=== PATIENT | female | born 1965 | race Caucasian/White ===

== ENCOUNTER 2024-01-23 06:30 | Outpatient (CLI) | payer BC, SELFPAY ==
[2024-01-23 18:55] LABS: Basophils Percent Auto 0.5 % (0.2-1.2); Eosinophils Absolute Auto 0.1 K/mm3 (0-0.3); Eosinophils Percent Auto 2.6 % (0-4.4); Hematocrit 44.9 % (37.0-47.0); Hemoglobin 14.4 g/dL (12.0-15.0); Immature Granulocyte Absolute 0.02 K/mm3 (0.00-0.031); Immature Granulocyte Percent A 0.5 % (0-0.5); Lymphocytes Absolute Auto 0.98 K/mm3 (0.9-3.2); Lymphocytes Percent Auto 22.9 % (18.3-44.2); Mean Corpuscular HGB Conc 32.1 g/dl (32-36); Mean Corpuscular Hemoglobin 31.2 pg (26-34); Mean Corpuscular Volume 97.4 fl (80-100); Mean Platelet Volume 10.5 fl (7.4-10.4); Monocytes Absolute Auto 0.3 K/mm3 (0.1-0.6); Monocytes Percent Auto 7.2 % (2.6-8.5); Neutrophils Absolute Auto 2.8 K/mm3 (1.3-6.7); Neutrophils Percent Auto 66.3 % (45.5-73.1); Platelet Count Result 269 k/mm3 (150-375); Red Blood Count 4.61 M/mm3 (4.2-5.4); Red Cell Distribution Width 13.2 % (11.5-14.5); White Blood Count 4.3 K/mm3 (4.5-10.0)
[2024-01-23 19:17] LABS: Alanine Aminotransferase 16 U/L (6-35); Albumin Level 3.9 g/dL (3.5-5.1); Alkaline Phosphatase 81 U/L (38-126); Anion Gap 11 mmol/L (4-12); Aspartate Amino Transferase 61 U/L (14-36); Bilirubin,Total 0.2 mg/dL (0.2-1.3); Blood Urea Nitrogen 6 mg/dL (7-17); Calcium 8.9 mg/dL (8.4-10.2); Carbon Dioxide 25 mmol/L (22-30); Chloride 100 mmol/L (98-107); Cholesterol 169 mg/dL (0-200); Estimated Glomerular Filt Rate > 60; Glucose 83 mg/dL (65-110); HDL Direct 43 mg/dL; Magnesium 2.1 mg/dL (1.6-2.3); Potassium 3.6 mmol/L (3.4-5.0); Sodium 136 mmol/L (137-145); Triglycerides 107 mg/dL (<150)
[2024-01-23 19:28] LABS: LDL Cholesterol Direct 98 mg/dL
[2024-01-23 20:55] LABS: Iron 64 ug/dL (37-170)
[2024-01-23 21:04] LABS: Percent Iron Saturation 21 % (20-50)
[2024-01-23 21:31] LABS: Ferritin 8.96 ng/mL (11.1-264)
[2024-01-23 22:12] LABS: Free T4 Free Thyroxine Reflex 1.09 ng/dL (0.78-2.19)
[2024-01-23 22:59] LABS: Total Triiodothyronine (T3) 1.79 NG/ML (0.97-1.69)
== END 2024-01-23 06:31 | disposition home or self-care (01) ==
LOC: ANHBWCLAB 06:33
PROVIDERS: PCP Nurse Practitioner Adult Health; Visit Provider Nurse Practitioner Adult Health
DX: I10 Essential (primary) hypertension (principal); D64.9 Anemia, unspecified
CPT/HCPCS: 36415; 80053; 80061; 82728; 83540; 83550; 83735; 84439; 84443; 84480; 85025

== ENCOUNTER 2024-03-01 08:40 | Outpatient (CLI) | payer BC, SELFPAY ==
--- NOTE | ~2024-03-01 | US_ITS ---
Thyroid ultrasound. Clinical History: Abnormal blood chemistry findings Findings: Real-time sonography of the thyroid gland was performed. The right lobe measures 3.9 x 1.1 x 1.4 cm. The left lobe measures 4.4 x 1.1 x 1.2 cm. The isthmus is 3 mm in AP diameter. There is a 2 mm hypoechoic nodule in the right midpole. Impression: No significant abnormality. 2 mm right midpole thyroid nodule is of doubtful clinical significance. Reviewed, dictated and finalized at [facility]. Impression: No significant abnormality. 2 mm right midpole thyroid nodule is of doubtful cl inical significance.
== END 2024-03-01 08:41 | disposition home or self-care (01) ==
LOC: MICIMG 08:40
PROVIDERS: PCP Nurse Practitioner Adult Health; Visit Provider Nurse Practitioner Adult Health
DX: R79.89 Other specified abnormal findings of blood chemistry (principal)
CPT/HCPCS: 76536